=== PATIENT | male | born 1955 | race Caucasian/White ===

== ENCOUNTER 2019-04-08 05:39 | Day surgery (SDC) | payer BC, OTHER ==
[2019-04-08] MEDS ORDERED: SODIUM CHL 0.9% 100ML MINI-BAG 100 ML IVPB ONE (05:50)
[2019-04-08] MEDS ORDERED: LACTATED RINGERS 1,000 ML ONE (05:50)
[2019-04-08] MEDS ORDERED: ceFAZolin SODIUM 1 GM VIAL ONE (05:51)
[2019-04-08] MEDS ORDERED: raNITIdine HCL INJ 25 MG/ML VIAL ONE (07:00)
[2019-04-08] MEDS ORDERED: KETOROLAC TROMETHAMINE INJ 30 MG/ML VIAL ONE (07:00)
[2019-04-08] MEDS ORDERED: DEXAMETHASONE INJ 10 MG/ML VIAL ONE (07:00)
[2019-04-08] MEDS ORDERED: LIDOCAINE 1% 10 ML VIAL INJ ONE (07:00)
[2019-04-08] MEDS ORDERED: PROPOFOL 200 MG/20 ML VIAL IV ONE (07:00)
[2019-04-08] MEDS ORDERED: LACTATED RINGERS 1,000 ML IVS ONE ×2 (07:40→09:37)
[2019-04-08] MEDS ORDERED: MIDAZOLAM INJ 2 MG/2 ML VIAL ONE (07:53)
[2019-04-08] MEDS ORDERED: KETAMINE HCL 100 MG/ML VIAL ONE (07:53)
[2019-04-08] MEDS ORDERED: fentaNYL CITRATE INJ 50 MCG/ML AMP ONE (07:54)
[2019-04-08] MEDS ORDERED: BUPIVACAINE 0.5% W/EPI 30 ML VIAL INJ ONE (07:54)
[2019-04-08] MEDS ORDERED: POLYETHY-PROP GLYCOL OPHTH SOL 1 DROP ONE (09:01)
[2019-04-08 10:22] VITALS: O2SAT 99
--- NOTE | 2019-04-08 10:30 | OP ---
DATE OF PROCEDURE: 04/08/19 PREOPERATIVE DIAGNOSIS: 1. Right inguinal hernia. POSTOPERATIVE DIAGNOSIS: 1. Large indirect right inguinal hernia. 2. Retroperitoneal tumor through the internal ring. PROCEDURE: 1. Repair of right inguinal hernia with large PHS mesh. 2. Removal of 5 cm retroperitoneal tumor. 3. Ilioinguinal nerve block for postoperative pain control. SURGEON: Oren Parks MD. ANESTHESIA: General and local. FINDINGS: He had a large fatty hernia coming through the internal ring, direct, was patent. 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 These were high ligated. COMPLICATIONS: None. ESTIMATED BLOOD LOSS: Minimal. PLAN: Discharge. INDICATION: As stated. PROCEDURE: General anesthesia was induced. He was prepped and draped in sterile fashion. 0.5% Marcaine with epinephrine was used at the incision sites which were made based on anatomic landmarks. An ilioinguinal nerve block was performed based on the landmarks. 3 mL of 0.5% Marcaine with epinephrine were injected around the medial inferior portion of the anterior superior iliac spine. An incision was made. Subcutaneous tissue was taken down. The subcutaneous vessel was cauterized. The external oblique aponeurosis was identified and opened along its fibers, opening the external ring. We then isolated the cord. It was quite bulky proximally and we dissected out these various cord lipomas/retroperitoneal tumors coming the internal ring. These were high ligated with suture. We dissected out the cord. There was no true large sac identified, but just medial to this and lateral to the epigastric vessels was a large fatty protuberance. I did cut the overlying sac to get into the preperitoneal plane, but this was reduced. The inguinal floor was intact. Once we had a good dissection with 3 moist Raytec sponges and finger sweep, the large PHS mesh was trimmed inferiorly and placed in the preperitoneal plane. A suki was made and wrapped around the cord, non-stricturing and secured at the shelving edge in the tubercle, laid out underneath the external oblique aponeurosis. The external oblique was then closed with running 2-0 Vicryl with care not to incorporate the nerve, which was identified and spared. More local anesthesia was placed. The wound was then closed in two layers. Dressings were applied. The patient was awakened and taken to Recovery to be discharged. #[id number] cc: Jeffery Trinh MD [facility]
[2019-04-08 10:57] VITALS: BP 146/69; TEMP 96.3
== END 2019-04-08 10:50 | disposition home or self-care (01) ==
LOC: AMB 05:39
PROVIDERS: ATTEND Surgery
DX: K40.90 Unilateral inguinal hernia, without obstruction or gangrene, not specified as recurrent (principal); D17.6 Benign lipomatous neoplasm of spermatic cord; G89.18 Other acute postprocedural pain
CPT/HCPCS: 00830; 49505; 55520; 64450; J0690; J1100; J1885; J2250; J2780; J3010; J3490; J7050; J7120